=== PATIENT | female | born 1930 | race Caucasian/White ===

== ENCOUNTER 2020-05-12 03:23 | Emergency (ER) | payer MEDICARE ==
[~2020-05-12] VITALS: Ht 152.4 cm; Wt 49.9 kg
[~2020-05-12 03:23] MED LIST: ASPIR LOW81 MG PO; CARDIZEM90 MG PO; Duoneb 3ML 3 MG/3 ML INH; LEVAQUIN 500 M500 M1 IV; NKHM; ROCEPHIN2 GM/50 ML IV
[2020-05-12 04:10] LABS: BASO % 0.4 % (0.0-1.0); EOS # 0.2 10*3/uL (0.0-0.4); EOS % 2.4 % (1.0-4.0); HEMATOCRIT 37.9 % (37.0-47.0); LYMPH # 1.4 10*3/uL (1.3-4.4); LYMPH % 14.9 % (27.0-41.0); MEAN CELL VOLUME 90.7 fl (81.0-99.0); MEAN CORPUSCULAR HGB 28.9 pg (27.0-31.0); MEAN CORPUSCULAR HGB CONC 31.9 g/dl (33.0-37.0); MEAN PLATELET VOLUME 9.6 fl (9.6-12.3); MONO # 1.1 10*3/uL (0.1-1.0); MONO % 12.4 % (3.0-9.0); NEUT # 6.4 10*3/uL (2.3-7.9); NEUT % 69.7 % (47.0-73.0); PLATELET COUNT AUTOMATED 258 10*3/uL (130-400); RED BLOOD COUNT 4.18 10*6/uL (4.10-5.10); RED CELL DISTRI WIDTH 13.5 % (0-14.5); WHITE BLOOD COUNT 9.2 10*3/uL (4.8-10.8)
[2020-05-12 04:22] LABS: ACT PARTIAL THROMBO TIME 26.1 SECONDS (20.0-32.1)
[2020-05-12 04:28] LABS: ALBUMIN 3.2 gm/dl (3.1-4.5); ALKALINE PHOSPHATASE 61 U/L (45-117); BUN 22 mg/dl (7-24); CHLORIDE 107 mmol/L (98-107); CREATININE 1.24 mg/dL (0.55-1.02); POTASSIUM 3.5 mmol/L (3.5-5.1); SGOT/AST 16 IU/L (3-35); SGPT/ALT 14 U/L (12-78); SODIUM 141 mmol/L (136-145); TOTAL PROTEIN 7.3 gm/dL (6.4-8.2)
[2020-05-12 04:29] LABS: TROPONIN I < 0.015 ng/ml (<0.045)
[2020-05-12 07:54] LABS: BILIRUBIN Negative (Negative); BLOOD 2+ (Negative); CLARITY Clear (Clear); COLOR Yellow (Yellow); GLUCOSE Negative (Negative); KETONE Negative (Negative); LEUKO ESTERASE 2+ (Negative); NITRITE Negative (Negative); SPECIFIC GRAVITY 1.015 (1.001-1.030)
[2020-05-12 08:05] LABS: MUCOUS TRACE; RBC 21-30 rbc/hpf (0-2)
== END 2020-05-12 08:18 | disposition home or self-care (01) ==
LOC: ED 03:23
PROVIDERS: Emergency Medicine
DX: N13.2 Hydronephrosis with renal and ureteral calculous obstruction (principal); N63.0 Unspecified lump in unspecified breast; R21 Rash and other nonspecific skin eruption; R06.02 Shortness of breath; I48.91 Unspecified atrial fibrillation; Z88.1 Allergy status to other antibiotic agents; Z79.899 Other long term (current) drug therapy; Z79.82 Long term (current) use of aspirin

== ENCOUNTER 2020-11-05 13:16 | Inpatient (IN) | payer MEDICARE ==
[~2020-11-05] VITALS: Ht 147.3 cm; Wt 42.1 kg
[2020-11-05 13:20] VITALS: BP 131/76
[2020-11-05 13:47] LABS: BASO % 0.5 % (0.0-1.0); EOS # 0.1 10*3/uL (0.0-0.4); EOS % 0.6 % (1.0-4.0); HEMATOCRIT 48.9 % (37.0-47.0); LYMPH % 13.3 % (27.0-41.0); MEAN CELL VOLUME 91.2 fl (81.0-99.0); MEAN CORPUSCULAR HGB 28.5 pg (27.0-31.0); MEAN CORPUSCULAR HGB CONC 31.3 g/dl (33.0-37.0); MEAN PLATELET VOLUME 10.3 fl (9.6-12.3); MONO # 0.8 10*3/uL (0.1-1.0); MONO % 10.3 % (3.0-9.0); NEUT # 5.9 10*3/uL (2.3-7.9); PLATELET COUNT AUTOMATED 333 10*3/uL (130-400); RED BLOOD COUNT 5.36 10*6/uL (4.10-5.10); RED CELL DISTRI WIDTH 14.1 % (0-14.5); WHITE BLOOD COUNT 7.8 10*3/uL (4.8-10.8)
[2020-11-05 14:05] LABS: ALBUMIN 3.3 gm/dl (3.1-4.5); ALKALINE PHOSPHATASE 63 U/L (45-117); BUN 31 mg/dl (7-24); CHLORIDE 102 mmol/L (98-107); CREATININE 1.57 mg/dL (0.55-1.02); LIPASE 112 U/L (73-393); POTASSIUM 3.9 mmol/L (3.5-5.1); SGOT/AST 24 IU/L (3-35); SGPT/ALT 14 U/L (12-78); SODIUM 137 mmol/L (136-145); TOTAL PROTEIN 8.3 gm/dL (6.4-8.2)
[2020-11-05 14:06] LABS: TROPONIN I < 0.015 ng/ml (<0.045)
[2020-11-05 14:15] VITALS: BP 130/80
[2020-11-05 15:04] VITALS: BP 146/82
[2020-11-05 18:12] LABS: BILIRUBIN 1+ (Negative); BLOOD 2+ (Negative); CLARITY Turbid (Clear); COLOR Red (Yellow); GLUCOSE Negative (Negative); KETONE Negative (Negative); LEUKO ESTERASE 2+ (Negative); NITRITE Positive (Negative); UROBILINOGEN 0.2 E.U./dl (0.0-1.0)
[2020-11-05 18:28] LABS: RBC TNTC rbc/hpf (0-2)
[2020-11-05 20:02] VITALS: BP 136/88
[2020-11-05 20:15] VITALS: BP 169/96
[2020-11-06] VITALS: BP 134/82
[2020-11-06 08:00] VITALS: BP 148/87
[2020-11-06 12:00] VITALS: BP 152/89
[2020-11-06 16:00] VITALS: BP 127/70
[2020-11-06 20:00] VITALS: BP 137/88
[2020-11-07] VITALS: BP 110/74
[2020-11-07 06:26] LABS: BASO # 0.1 10*3/uL (0.0-0.1); BASO % 0.6 % (0.0-1.0); EOS # 0.1 10*3/uL (0.0-0.4); EOS % 1.2 % (1.0-4.0); LYMPH # 1.2 10*3/uL (1.3-4.4); LYMPH % 13.3 % (27.0-41.0); MEAN CORPUSCULAR HGB CONC 32.3 g/dl (33.0-37.0); MEAN PLATELET VOLUME 10.4 fl (9.6-12.3); MONO # 1.1 10*3/uL (0.1-1.0); MONO % 12.2 % (3.0-9.0); NEUT # 6.4 10*3/uL (2.3-7.9); NEUT % 72.5 % (47.0-73.0); PLATELET COUNT AUTOMATED 319 10*3/uL (130-400); RED BLOOD COUNT 4.89 10*6/uL (4.10-5.10); RED CELL DISTRI WIDTH 14.3 % (0-14.5); WHITE BLOOD COUNT 8.9 10*3/uL (4.8-10.8)
[2020-11-07 06:53] LABS: CREATININE 2.34 mg/dL (0.55-1.02); POTASSIUM 3.7 mmol/L (3.5-5.1)
[2020-11-07 08:00] VITALS: BP 126/79
[2020-11-07 12:00] VITALS: BP 115/75
[2020-11-07 16:00] VITALS: BP 120/71
[2020-11-07 20:00] VITALS: BP 130/75
[2020-11-07 23:22] VITALS: BP 126/71
[2020-11-08 08:00] VITALS: BP 109/61
[2020-11-08 12:00] VITALS: BP 115/66
[2020-11-08 16:03] VITALS: BP 107/70
== END 2020-11-08 17:29 | DRG 598 ==
LOC: ED 13:16 → 4E 16:05 → EDHOLD 16:05 → 4E 19:21
PROVIDERS: Emergency Medicine; ADMIT Internal Medicine; ATTEND Internal Medicine
PROC: 0HBRXZZ Excision of Toe Nail, External Approach (ICD-10-PCS; principal; 2020-11-06)
PROC: 0HBRXZZ Excision of Toe Nail, External Approach (ICD-10-PCS; 2020-11-06)
PROC: 0HBRXZZ Excision of Toe Nail, External Approach (ICD-10-PCS; 2020-11-06)
PROC: 0HBRXZZ Excision of Toe Nail, External Approach (ICD-10-PCS; 2020-11-06)
PROC: 0HBRXZZ Excision of Toe Nail, External Approach (ICD-10-PCS; 2020-11-06)
PROC: 0HBRXZZ Excision of Toe Nail, External Approach (ICD-10-PCS; 2020-11-06)
PROC: 0HBRXZZ Excision of Toe Nail, External Approach (ICD-10-PCS; 2020-11-06)
PROC: 0HBRXZZ Excision of Toe Nail, External Approach (ICD-10-PCS; 2020-11-06)
PROC: 0HBRXZZ Excision of Toe Nail, External Approach (ICD-10-PCS; 2020-11-06)
PROC: 0HBRXZZ Excision of Toe Nail, External Approach (ICD-10-PCS; 2020-11-06)
DX: C50.911 Malignant neoplasm of unspecified site of right female breast (principal); N39.0 Urinary tract infection, site not specified; N18.4 Chronic kidney disease, stage 4 (severe); Z68.1 Body mass index [BMI] 19.9 or less, adult; I50.9 Heart failure, unspecified; L40.9 Psoriasis, unspecified; I48.91 Unspecified atrial fibrillation; R53.1 Weakness; R26.89 Other abnormalities of gait and mobility; Z20.822 Contact with and (suspected) exposure to COVID-19; R62.7 Adult failure to thrive; B35.1 Tinea unguium; Z88.1 Allergy status to other antibiotic agents; Z87.01 Personal history of pneumonia (recurrent); Z79.899 Other long term (current) drug therapy; Z79.82 Long term (current) use of aspirin